=== PATIENT | male | born 1995 | race Caucasian/White ===

== ENCOUNTER 2020-11-11 10:04 | Emergency (ER) | payer SELFPAY ==
[2020-11-11 11:09] VITALS: BP 128/72; PULSE 72; RESP 14; TEMP 36.6; BMI 20.1
--- NOTE | 2020-11-11 11:35 | ED_ITS ---
HPI - Dental/Oral General Chief complaint: Dental/Oral Stated complaint: tooth pain Time Seen by Provider: 11/11/20 11:23 Source: patient Mode of arrival: ambulatory Limitations: no limitations History of Present Illness HPI Narrative: 25-year-old male who presents emergency department for evaluation of right lower jaw dental pain. The patient states that he has had a broken tooth in his right lower jaw for some time. States the past 3 days he has been getting pain in this tooth. He states that the pain is constant, 10/10 and not relieved with Tylenol, ibuprofen or warm compresses. Patient has not noticed any swelling of his face. He denied headache, nausea or vomiting. He denied fever, chills, weakness, nausea or vomiting. Patient does not have a dentist. Related Data Previous Rx's Medication Instructions Recorded morphine 15 mg immediate release 15 mg PO Q4-6H PRN #10 tab 11/11/20 tablet prednisone 20 mg tablet 60 mg PO DAILY 5 Days #15 tab 11/11/20 Allergies Allergy/AdvReac Type Severity Reaction Status Date / Time No Known Allergies Allergy Unverified 12/22/19 16:18 [No Known Allergies*] Review of Systems Review of Systems: Yes all other systems are reviewed and are negative [facility] Past Medical History [facility] Narrative: Past medical history: None. Social history: The patient is employed. 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 He smokes half pack of cigarettes per day for 6 years. He occasionally drinks alcohol. He denies drug use. Social History Social History Advance Directives: No Advance Directives Information Provided: No Physical Exam Vital Signs: Vital Signs: Last Vital Signs Temp 97.8 F 11/11/20 11:09 Pulse 72 11/11/20 11:09 Resp 14 11/11/20 11:09 BP 128/72 11/11/20 11:09 Body Mass Index 20.1 Const: General: cooperative and healthy appearing Orientation/consciousness: oriented to person and oriented to place Limitations: no limitations HENMT: Head: Yes normal to inspection Ears: external ears normal General nose exam: Normal external nose present Face and sinus: Yes normal facial exam Mouth: Normal oral and palatal mucosa present Teeth image: 1. Fractured tooth, tooth below the gumline, no gingival swelling, no abscess, no discharge Throat: Yes posterior oropharynx normal Eyes: General: appearance normal, both eyes and all related structures Eyelids: Yes eyelids normal Conjunctivae: conjunctivae normal Sclerae: sclerae normal Pupils: Equal, round and reactive pupils present Neck: Neck: Yes normal visual inspection, Yes full ROM, Yes no lymphadenopathy, Yes trachea midline and Yes supple Resp: Effort & Inspection: normal respiratory effort Neuro: General: oriented to person and oriented to place Cranial nerves: Yes Equal, round and reactive pupils present Psych: Appearance: grossly normal Mental Status: mental status grossly normal Speech and movement: Normal speech and movement present Course Course Course Narrative: 25-year-old man who presents emergency department for evaluation of dental pain. Physical examination does reveal a fractured tooth in position 32 which is tender to palpation. Patient's presentation is consistent with a dental infection. Patient was started on penicillin 500 mg pills, 1 pill 4 times a day for 10 days. He is advised to take Tylenol and ibuprofen for pain. For pain not relieved by these medications he was pr escribed morphine 15 mg pills, 1 pill every 4-6 hours as needed. The patient was given the dental clinic referral list. The patient was given verbal and printed instructions prior to discharge. The patient was advised to follow-up with his PCP in 2 days and to return to the emergency department if his symptoms get worse or if he develops any new symptoms that are concerning to him. Discharge Plan Discharge Clinical Impression: Dental infection Patient Disposition: Home, Self-Care Instructions: Toothache (ED) Additional Instructions: Your presentation is consistent with a dental infection. Take ibuprofen 200 mg pills, 3 pills every 6 hours as needed for pain. Take extra-strength Tylenol (acetaminophen) 500 mg pills, 2 pills every 6 hours as needed for pain. For pain not relieved by ibuprofen or Tylenol take morphine 15 mg pills, 1 pill every 4 hours as needed for pain. This medication will make you sleepy, do not drive or work while taking this medication. Morphine is a narcotic medication and can be addicting. If you are concerned about addiction you can ask the pharmacist for less pills or do not get this prescription filled. Follow-up with your doctor in 2 days. Please return to the emergency department if your symptoms get worse or if you develop any symptoms that are concerning to you. Prescriptions: New prednisone 20 mg tablet 60 mg PO DAILY 5 Days Qty: 15 RF: 0 morphine 15 mg tablet 15 mg PO Q4-6H PRN (Reason: pain) Qty: 10 RF: 0
== END 2020-11-11 12:53 | disposition home or self-care (01) ==
PROVIDERS: Emergency Provider Emergency Medicine Emergency Medical Services
DX: K04.7 Periapical abscess without sinus (principal); K08.89 Other specified disorders of teeth and supporting structures
CPT/HCPCS: 99283

== ENCOUNTER 2021-04-30 16:17 | Emergency (ER) | payer SELFPAY ==
[2021-04-30 16:56] VITALS: BP 118/79; PULSE 76; RESP 18; TEMP 36.5; O2SAT 99
--- NOTE | 2021-04-30 18:09 | ED_ITS ---
HPI - Dental/Oral General Chief complaint: Dental/Oral Stated complaint: right dental pain Source: patient Mode of arrival: ambulatory Limitations: no limitations History of Present Illness HPI Narrative: 26-year-old male presents with 9/10 dental pain for approximately 1 week. States that he has multiple broken teeth with caries, and has poor dental care. Any fevers or chills, and is able to open and close his mouth without difficulty. MD Complaint: tooth pain Teeth map: 1. Broken tooth with visible caries 2. Carries 3. Carries 4. Carry Onset (ago): week(s) (1) Duration: constant Severity: moderate Severity scale (1-10): 8 Relieving factors: nothing Exacerbating factors: chewing, cold and heat Context: history of dental caries and poor dental care Associated symptoms: gum swelling Treatment prior to arrival: oral analgesic Related Data Previous Rx's Medication Instructions Recorded morphine 15 mg immediate release 15 mg PO Q4-6H PRN #10 tab 11/11/20 tablet penicillin V potassium 500 mg 500 mg PO QID 10 Days #40 tab 11/11/20 tablet amoxicillin 875 mg-potassium 1 tab PO Q12H 10 Days #20 tab 04/30/21 clavulanate 125 mg tablet (Augmentin) ibuprofen 600 mg tablet 600 mg PO Q6H PRN #30 tab 04/30/21 Allergies Allergy/AdvReac Type Severity Reaction Status Date / Time No Known Allergies Allergy Verified 04/30/21 16:56 [No Known Allergies*] Review of Systems Verdana 4l Review of Systems: Verdana 4d Verdana 4d Constitutional: No Fever, No Chills ENT/Mouth: No swallowing difficulty, no change in voice, positive dental pain, positive jaw pain, no facial swelling Eyes: No Eye Pain, No Swelling Cardiovascular: No Chest Pain, No SOB Respiratory:: No Cough, No Sputum, No Wheezing, No Smoke Exposure, No Dyspnea Gastrointestinal: No Nausea, No Vomiting, No Diarrhea Genitourinary: No Dysuria Musculoskeletal: No Myalgias Skin: No rash Neuro: No Weakness, No Numbness, No Headache Yes all other systems are reviewed and are negative [facility] Past Medical History Attestation statement: The following information was validated with the patient. Source: old records reviewed Social History Social History Advance Directives: No Advance Directives Information Provided: No Physical Exam Verdana 4l Vital Signs: Verdana 4d Verdana 4d Vital Signs: Verdana 4d Verdana 4Bd Last Vital Signs Verdana 4d Technical Operations Specialist 4d Naila Brown 4d Temp 97.7 F 04/30/21 18:19 Technical Operations Specialist New 4d Pulse 66 04/30/21 18:19 Naila NewNew 4d Resp 16 04/30/21 18:19 BP 102/66 04/30/21 18:19 Pulse Ox 100 04/30/21 18:19 BMI result Body Mass Index 20.0 Appearance: Alert. Oriented X3. No acute distress. Eyes: Pupils equal, round and reactive to light. ENT: Pharynx normal. Multiple dental caries with broken teeth, gingivitis around tooth number 30 Neck: Normal inspection. Neck supple. No cervical lymphadenopathy. No nuchal rigidity. CVS: Normal heart rate and rhythm. Pulses normal. Respiratory: No respiratory distress. Breath sounds normal. Abdomen: Soft and nontender. Skin: Skin warm and dry. Normal skin color. Normal skin turgor. Extremities: No lower extremity edema. Gait well-balanced well coordinated. Neuro: No motor deficit. No sensory deficit. Cranial nerves 2-12 intact. Course Course Course Narrative: 26-year-old male presents with dental caries and dental pain. Does not have a dental provider. Patient is afebrile, appears nontoxic. Able to open and close mouth without difficulty. Will give, Toradol, prescription for ibuprofen and have patient follow-up with dentist I did provide dental phone numbers his discharge instructions and he does understand that he must call as well as waste picker his antibiotics. Patient verbalizes understanding of and agrees to plan of care to discharge home. MDM - Dental/Oral Differential Diagnosis Differential diagnosis: Likely dental caries and toothache Medical Records Attestation: I reviewed the patient's medical records. Discharge Plan Discharge Clinical Impression: Toothache Patient Disposition: Home, Self-Care Instructions: Toothache (ED) Additional Instructions: You were evaluated for dental pain. Please follow-up with a dentist. I prescribed Augmentin 875 mg twice a day for the next 10 days. Please take Motrin 600 mg every 6 hours as needed. You may also take Tylenol 650 mg every 6 hours as needed for pain management. Thank you for choosing this emergency department for evaluation. Please fo llow-up with primary care physician as needed. Return to the emergency department for any new, concerning, or worsening symptoms. Prescriptions: New amoxicillin-pot clavulanate [Augmentin] 875-125 mg tablet 1 tab PO Q12H 10 Days Qty: 20 RF: 0 ibuprofen 600 mg tablet 600 mg PO Q6H PRN (Reason: pain) Qty: 30 RF: 0 No Action morphine 15 mg tablet 15 mg PO Q4-6H PRN (Reason: pain) Qty: 10 RF: 0 penicillin V potassium 500 mg tablet 500 mg PO QID 10 Days Qty: 40 RF: 0 Stand Alone Forms: Dental Emergency Numbers, Work/School Release Interventions: ED Discharge Assessment Last Done: 04/30/21 18:51 Discharge Date/Time: 04/30/21 19:08
[2021-04-30 18:19] VITALS: BP 102/66; PULSE 66; RESP 16; TEMP 36.5; O2SAT 100
[2021-04-30] MEDS: Ketorolac Tromethamine 60 MG/2 ML VIAL IM (18:25)
[2021-04-30] MEDS: Amoxicillin/Potassium Clav 875 MG TABLET PO (18:25)
== END 2021-04-30 19:08 | disposition home or self-care (01) ==
PROVIDERS: Emergency Provider Emergency Medicine
DX: K02.9 Dental caries, unspecified (principal)
CPT/HCPCS: 96372; 99284; J1885

== ENCOUNTER 2022-01-21 19:12 | Emergency (ER) | payer OTHER, SELFPAY ==
--- NOTE | ~2022-01-21 | XR_ITS ---
EXAMINATION: XR lumbar spine 2-3V, XR shoulder RT min 2V CLINICAL INFORMATION: Reason for Exam pain, no injury COMPARISON: None. TECHNIQUE: 3 views lumbosacral spine; 4 views right shoulder FINDINGS: Lumbar spine: Normal alignment of the lumbar spine. No listhesis. Vertebral body heights and intervertebral disc space heights are maintained. No pars defects are identified. Moderate amount of formed stool seen in the visualized colon. Right shoulder: No fracture or dislocation. Glenohumeral joint space and acromiohumeral interval are maintained. No periarticular soft tissue calcification. AC joint is congruent and intact. Visualized right lung is grossly clear. XR/XR lumbar spine 2-3V IMPRESSION: 1. Normal alignment of the lumbar spine. No listhesis or fracture. 2. No acute osseous injury at the right shoulder.
--- NOTE | ~2022-01-21 | XR_ITS ---
EXAMINATION: XR lumbar spine 2-3V, XR shoulder RT min 2V CLINICAL INFORMATION: Reason for Exam pain, no injury COMPARISON: None. TECHNIQUE: 3 views lumbosacral spine; 4 views right shoulder FINDINGS: Lumbar spine: Normal alignment of the lumbar spine. No listhesis. Vertebral body heights and intervertebral disc space heights are maintained. No pars defects are identified. Moderate amount of formed stool seen in the visualized colon. Right shoulder: No fracture or dislocation. Glenohumeral joint space and acromiohumeral interval are maintained. No periarticular soft tissue calcification. AC joint is congruent and intact. Visualized right lung is grossly clear. XR/XR shoulder RT min 2V IMPRESSION: 1. Normal alignment of the lumbar spine. No listhesis or fracture. 2. No acute osseous injury at the right shoulder.
[2022-01-21 21:38] VITALS: BP 114/73; PULSE 70; RESP 16; TEMP 36.4; O2SAT 98
--- NOTE | 2022-01-22 00:05 | ED.BACK ---
HPI - Back Pain/Injury General Chief Complaint: Back Pain/Injury Stated Complaint: back/ shoulder pain Time Seen by Provider: 01/21/22 23:56 Source: patient Mode of arrival: ambulatory Limitations: no limitations History of Present Illness HPI Narrative: 26-year-old male who is healthy who presents with several weeks of lower back pain. No radiation of pain. No numbness or tingling in the lower extremities. No weakness lower extremities. No bowel or bladder cause. No fevers or chills. No numbness in the groin. Patient also reports right shoulder pain. This has been going on for several weeks as well. Patient is right-hand dominant. No weakness, numbness or tingling of the extremity. 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 Cannot recall specific injury Related Data Previous Rx's Medication Instructions Recorded morphine 15 mg immediate release 15 mg PO Q4-6H PRN pain #10 tabs 11/11/20 tablet penicillin V potassium 500 mg 500 mg PO QID 10 days #40 tabs 11/11/20 tablet amoxicillin 875 mg-potassium 1 tab PO Q12H 10 days #20 tabs 04/30/21 clavulanate 125 mg tablet (Augmentin) ibuprofen 600 mg tablet 600 mg PO Q6H PRN pain #30 tabs 04/30/21 cyclobenzaprine 10 mg tablet 10 mg PO TID PRN muscle spasm #15 01/22/22 tabs naproxen 500 mg tablet 500 mg PO BID PRN pain #30 tabs 01/22/22 Allergies Allergy/AdvReac Type Severity Reaction Status Date / Time No Known Allergies Allergy Verified 04/30/21 16:56 [No Known Allergies*] Review of Systems Review of Systems: Yes all other systems are reviewed and are negative Constitutional: Constitutional: Reports no additional constitutional complaints, Denies body ache(s), Denies chills, Denies fever(s), Denies headache(s) and Denies weakness Eyes: Eyes: Reports no additional eye complaints and Denies change in vision ENT: Reports system reviewed and no additional complaints, except as documented, Denies dizziness, Denies headache(s), Denies nasal congestion, Denies nasal discharge and Denies neck pain Cardiovascular: Cardiovascular: Reports no additional cardiovascular complaints, Denies chest pain, Denies leg edema and Denies dyspnea Respiratory: Respiratory: Reports no additional respiratory complaints, Denies cough and Denies dyspnea Gastrointestinal: Gastrointestinal: Reports no additional gastrointestinal complaints, Denies abdominal pain, Denies diarrhea, Denies nausea and Denies vomiting Genitourinary: Genitourinary: Denies urinary incontinence Musculoskeletal: Musculoskeletal: Reports no additional musculoskeletal complaints, Reports back pain, Reports arthralgias, Denies joint swelling, Denies neck pain, Denies numbness and Denies tingling Integumentary/Breasts: Skin/Breast: Reports system reviewed and no additional complaints, except as docu and Denies rash Neurologic: Reports system reviewed and no additional complaints, except as documented, Denies Abnormal speech present, Denies dizziness, Denies headache(s), Denies numbness, Denies tingling and Denies weakness PMFSH Past Medical History Attestation statement: The following information was validated with the patient. Source: old records reviewed and nursing notes reviewed Social History Social History Advance Directives: No Advance Directives Information Provided: Yes Physical Exam Vital Signs: Vital Signs: Last Vital Signs Temp 97.4 F 01/22/22 00:13 Pulse 65 01/22/22 00:13 Resp 16 01/22/22 00:13 BP 109/63 01/22/22 00:13 Pulse Ox 98 01/22/22 00:13 O2 Del Method 01/22/22 00:13 BMI result Body Mass Index 20.0 Const: General: cooperative, healthy appearing, comfortable and no acute distress Orientation/consciousness: patient oriented x3 Limitations: no limitations HEENT: Head: Yes normal to inspection Ears: hearing grossly normal bilaterally General nose exam: Normal external nose present Face and sinus: Yes normal facial exam Mouth: Normal oral and palatal mucosa present Throat: Yes posterior oropharynx normal Eyes: General: appearance normal, both eyes and all related structures Pupils: Equal, round and reactive pupils present Neck: Neck: Yes normal visual inspection Chest: Chest palpation & inspection: normal inspection of the chest Resp: Effort & Inspection: normal respiratory effort Auscultation: clear to auscultation bilaterally Cardio: Rate: regular rate Rhythm: regular rhythm Peripheral pulses: Peripheral pulses 2+ throughout GI: Inspection: Yes normal to inspection Palpation (GI): Soft to palpation and nontender Auscultation: normal bowel sounds Back/Spine/Pelvis: Other: Mid lumbar spine tenderness with no step-offs deformities. Pain is worsened with flexion extension of the spine. Thoracic/Lumbar Spine: thoracic and lumbar spine normal to inspection Skin: General skin exam: no rashes or lesions noted Neuro: General: patient oriented x3, no focal motor deficits and normal sensation to monofilament Cranial nerves: Yes Equal, round and reactive pupils present Cognition (Neuro): normal cognition Speech: No Abnormal speech present Gait exam (Neuro): Normal gait present Motor exam (neuro): 5/5 motor strength present throughout Sensory Exam: Normal double simultaneous stimulation for sensation Deep tendon reflexes (DTR's): Right patellar reflex intensity grade: 2+ and Left patellar reflex intensity grade: 2+ Extrem: Other: Tenderness to the anterior right shoulder with full range of motion. Neurovascular intact distally General: Yes normal to inspection Course Course Course Narrative: X-ray show show no bony abnormality. Likely strain. Patient will be discharged home with muscle relaxant and anti-inflammatory. Reviewed worrisome signs and symptoms of when to return to the emergency room. Comfortable plan for discharge home. MDM - Back Pain/Injury MDM Narrative Medical decision making narrative: 26-year-old male right-hand dominant to works a physically demanding job here with right shoulder pain and lower back pain for several weeks. No neurological deficits or red flag symptoms. Will check x-ray Medical Records Attestation: I reviewed the patient's medical records. Lab Data Attestation: I reviewed the patient's lab results. Imaging Data lumbar spine xray: Attestation: I personally reviewed and interpreted this imaging study as follows: Radiologist's impression: FINDINGS: Lumbar spine: Normal alignment of the lumbar spine. No listhesis. Vertebral body heights and intervertebral disc space heights are maintained. No pars defects are identified. Moderate amount of formed stool seen in the visualized colon. right shoulder x-ray: Attestation: I personally reviewed and interpreted this imaging study as follows: Radiologist's impression: Right shoulder: No fracture or dislocation. Glenohumeral joint space and acromiohumeral interval are maintained. No periarticular soft tissue calcification. AC joint is congruent and intact. Visualized right lung is grossly clear. Discharge Plan Discharge Clinical Impression: Strain of lumbar region, Right shoulder strain Patient Disposition: Home, Self-Care Instructions: Muscle Strain (ED), Low Back Strain (ED) Additional Instructions: No heavy lifting or bending Gentle stretching Prescriptions: New cyclobenzaprine 10 mg tablet 10 mg PO TID PRN (Reason: muscle spasm) Qty: 15 0RF naproxen 500 mg tablet 500 mg PO BID PRN (Reason: pain) Qty: 30 0RF No Action morphine 15 mg tablet 15 mg PO Q4-6H PRN (Reason: pain) Qty: 10 0RF Rx Instructions: The patient may ask for partial fill penicillin V potassium 500 mg tablet 500 mg PO QID 10 Days Qty: 40 0RF amoxicillin-pot clavulanate [Augmentin] 875-125 mg tablet 1 tab PO Q12H 10 Days Qty: 20 0RF ibuprofen 600 mg tablet 600 mg PO Q6H PRN (Reason: pain) Qty: 30 0RF Referrals: Physician,Unknown J [Primary Care Provider] - Stand Alone Forms: Work/School Release
[2022-01-22 00:13] VITALS: BP 109/63; PULSE 65; RESP 16; TEMP 36.3; O2SAT 98
== END 2022-01-22 01:31 | disposition home or self-care (01) ==
PROVIDERS: Emergency Provider Internal Medicine
DX: M54.50 Low back pain, unspecified (principal); M25.511 Pain in right shoulder; Z79.899 Other long term (current) drug therapy
CPT/HCPCS: 72100; 73030; 99283

== ENCOUNTER 2022-02-16 18:49 | Emergency (ER) | payer OTHER, SELFPAY ==
[2022-02-16 19:00] VITALS: BP 119/64; PULSE 81; RESP 15; TEMP 36.8; O2SAT 98
[2022-02-16 22:59] VITALS: BP 132/78; PULSE 70; RESP 16; TEMP 36.6; O2SAT 98
== END 2022-02-17 00:58 | disposition left against medical advice (07) ==
PROVIDERS: Emergency Provider Emergency Medicine
DX: K08.89 Other specified disorders of teeth and supporting structures (principal)
CPT/HCPCS: 99281

== ENCOUNTER 2024-10-12 11:00 | Emergency (ER) | payer SELFPAY ==
--- NOTE | ~2024-10-12 | CT_ITS ---
EXAMINATION: CT ABDOMEN AND PELVIS WITH CONTRAST CLINICAL INFORMATION: Epigastric Abdominal pain. COMPARISON: None available. TECHNIQUE: Multidetector volumetric images were obtained from the superior aspect of the liver through the pubic symphysis following administration 85 mL of Omnipaque 350 intravenous contrast. Sagittal and coronal reformatted images were obtained on the technologist's workstation. Oral contrast: No This CT examination was performed using dose optimization techniques as appropriate, variously including the following: *Automated exposure control *Adjustment of mA and/or kV according to patient size (this includes techniques or standardized protocols for targeted exams where dose is matched to indication/reason for exam; i.e. extremities or head) *Use of iterative reconstruction technique FINDINGS: LUNG BASES: The visualized lung bases are unremarkable. LIVER, GALLBLADDER, AND BILIARY TREE: The liver is normal in size, shape, and attenuation. There is periportal edema present. No focal hepatic lesion or biliary ductal dilatation is present. The gallbladder is unremarkable with no evidence of radiopaque gallstones, gallbladder wall thickening, or obvious pericholecystic inflammatory changes. PANCREAS: Unremarkable. SPLEEN: Unremarkable. ADRENAL GLANDS: Unremarkable. KIDNEYS AND URETERS: The kidneys are normal in size, shape, and attenuation. No hydronephrosis or hydroureter. There are approximately three 3 mm nonobstructing calculi in each kidney. BLADDER: Unremarkable. GASTROINTESTINAL TRACT: The appendix is not definitively seen although there are no CT features of appendicitis or inflammation abutting the cecum. The small bowel, large bowel, and rectum are normal in appearance without inflammation or wall thickening. There is no abnormally dilated loop of bowel. There is no abnormal mucosal thickening or enhancement. ABDOMINAL WALL: No significant hernia is appreciated. LYMPH NODES: No abnormal lymphadenopathy is present. VASCULAR: Unremarkable. PELVIC VISCERA: The prostate and seminal vesicles are unremarkable. OSSEOUS STRUCTURES: Unremarkable. CT/CT abdomen pelvis w IV con IMPRESSION: 1. No acute finding in the abdomen or pelvis. 2. Periportal edema, nonspecific and likely secondary to IV hydration. 3. Nonobstructing nephrolithiasis bilaterally. Electronically signed by: Marvin Zuniga MD 10/12/2024 02:18 PM EDT
--- NOTE | ~2024-10-12 | XR_ITS ---
EXAMINATION: XR CHEST 2 VIEWS HISTORY: CP COMPARISON: There are no prior studies available for comparison. FINDINGS: PA and lateral views of the chest are submitted. The lungs are expanded and clear. There is no pleural effusion, pneumothorax, or pulmonary vascular congestion. The heart is normal in size. The bones are intact. XR/XR chest 2V IMPRESSION: Normal examination of the chest. Electronically signed by: Yehuda Felton MD 10/12/2024 12:20 PM EDT
--- NOTE | 2024-10-12 11:06 | ECG_ITS ---
Test Reason : chest pain Blood Pressure : */* mmHG Vent. Rate : 71 BPM Atrial Rate : 71 BPM P-R Int : 144 ms QRS Dur : 88 ms QT Int : 362 ms P-R-T Axes : 83 76 66 degrees QTcB Int : 393 ms Normal sinus rhythm Normal ECG No previous ECGs available Referred By: Generic ED Physician Electronically Signed By: Nadeem Kendrick
[2024-10-12 11:36] VITALS: BP 119/81; PULSE 66; RESP 16; TEMP 36.8; O2SAT 99; BMI 20.1
--- NOTE | 2024-10-12 11:36 | ED_ITS ---
HPI - Chest Pain General Chief Complaint: Abdominal Pain Stated Complaint: Chest pain, abd pain Time Seen by Provider: 10/12/24 13:06 Source: patient Mode of arrival: ambulatory Limitations: no limitations History of Present Illness ED Provider: Jessica Brooks PA-C HPI narrative: Patient is a 29 year old male with past medical history of right shoulder injury presenting to ER with chief complaint of epigastric and mid-chest pain for the past 3 days. The pain was preceded by 1 day of right shoulder blade pain that has since resolved. He denies shortness of breath, nausea, vomiting, diarrhea, melena, hematochezia, constipation, or any other complaints. He denies previous abdominal surgeries. He denies history of previously diagnosed ulcers. He denies previous cardiac history. He takes ibuprofen for tooth pain. Today he felt his pain was alleviated after he ate a few pretzels, but cannot recall if his pain was alleviated by eating in previous days. He states the pain is intermittent in nature and is also unsure if it is worse with eating. He reports decreased PO food intake but feels fluid intake has been adequate. Per triage he drinks 2-3 shots daily and denies recreational drug use. Related Data Previous Rx's ?Medication ?Instructions ?Recorded morphine 15 mg immediate release 15 mg PO Q4-6H PRN pa in #10 tabs 11/11/20 tablet penicillin V potassium 500 mg 500 mg PO QID 10 days #4 0 tabs 11/11/20 tablet amoxicillin 875 mg-potassium 1 tab PO Q12H 10 days #20 tabs 04/30/21 clavulanate 125 mg tablet (Augmentin) ibuprofen 600 mg tablet 600 mg PO Q6H PRN pain #30 t abs 04/30/21 cyclobenzaprine 10 mg tablet 10 mg PO TID PRN muscle s pasm #15 01/22/22 tabs naproxen 500 mg tablet 500 mg PO BID PRN pain #30 t abs 01/22/22 Allergies Allergy/AdvReac Type Severity Reaction Status Date / Time No Known Allergies (No Known Allergy Verified 10/12/24 11:39 Allergies*) Review of Systems 2 Constitutional: Constitutional: Reports no additional constitutional complaints, Denies chills, Denies fever(s) and Denies night sweats Eyes: Eyes: Reports no additional eye complaints, Denies blurry vision, Denies change in vision, Denies diplopia, Denies eye discharge, Denies loss of vision and Denies eye pain ENT: Denies dizziness Cardiovascular: Cardiovascular: Reports no additional cardiovascular complaints, Reports chest pain, Reports Epigastric Pain, Denies lightheadedness, Denies Loss of Consciousness and Denies dyspnea Respiratory: Respiratory: Reports no additional respiratory complaints and Denies dyspnea Gastrointestinal: Gastrointestinal: Reports no additional gastrointestinal complaints, Denies melena, Denies hematochezia, Denies change in bowel habits and Denies change in stool character Genitourinary: Genitourinary: Reports no additional male genitourinary complaints, Denies hematuria, Denies oliguria, Denies difficulty urinating, Denies dysuria, Denies urinary frequency, Denies urinary hesitancy, Denies urinary incontinence and Denies urinary urgency Musculoskeletal: Musculoskeletal: Reports no additional musculoskeletal complaints, Denies numbness and Denies tingling Neurologic: Denies dizziness, Denies loss of vision, Denies numbness and Denies tingling Psychiatric: Psychiatric: Reports no additional psychiatric complaints Endocrine: Endocrine: Reports no additional endocrine complaints Hematologic/Lymphatic: Hematologic/Lymphatic: Reports no additional hematologic/lymphatic complaints Allergic/Immunologic: Allergic/Immunologic: Reports no additional allergic/immunologic complaints PMFSH Past Medical History Attestation statement: The following information was validated with the patient. Source: old records reviewed and nursing notes reviewed Social History Social History Alcohol intake: current Smoked in Last 30 Days: Yes Use of substances other than those prescribed or required for medical reasons: Yes Substance Use Type: Marijuana Substance Use Frequency: Occasionally Advance Directives: No Advance Directives Information Provided: Yes Physical Exam 2 Vital Signs: Vital Signs: Last Vital Signs Temp 97.7 F 10/12/24 14:00 Pulse 71 10/12/24 14:00 Resp 16 10/12/24 14:00 BP 125/78 10/12/24 14:00 Pulse Ox 100 10/12/24 14:00 O2 Del Method Room Air 10/12/24 14:00 BMI result Body Mass Index 20.1 Const: General: cooperative, no acute distress, alert and awake Nutritional Appearance: well nourished Orientation/consciousness: patient oriented x3 HEENT: Head: Yes normal to inspection and Yes atraumatic Ears: hearing grossly normal bilaterally and external ears normal General nose exam: Normal external nose present, no nasal discharge noted and no epistaxis Face and sinus: Yes normal facial exam, No abrasion and No laceration Mouth: Normal oral and palatal mucosa present, no drooling and no muffled voice Eyes: General: appearance normal, both eyes and all related structures P eriorbital: periorbital findings normal Eyelids: Yes eyelids normal C onjunctivae: conjunctivae normal Pupils: Equal, round and reactive pupils present EOM: EOMs intact bilaterally Neck: Neck: Yes normal visual inspection, Yes full ROM and Yes no lymphadenopathy Resp: Effort & Inspection: normal respiratory effort and able to speak in complete sentences Cardio: Rate: regular rate Rhythm: regular rhythm Heart sounds: S1 normal heart sound present and S2 normal heart sound present GI: Palpation (GI): Soft to palpation, nontender, no guarding and not rigid Neuro: General: patient oriented x3, moves all extremities and CN's II-XI intact bilaterally Cranial nerves: Yes Equal, round and reactive pupils present Cognition (Neuro): normal cognition Extrem: General: Yes normal to inspection, Yes full ROM and Yes capillary refill normal Psych: Appearance: grossly normal Mental Status: mental status grossly normal Affect: normal affect Attitude: cooperative Thought process: N ormal thought process present Thought content: Normal thought content present Insight: Good insight present (Psych) Course Course Course Narrative: This is an RME: Additional HPI, ROS, PE not included below will be deferred to primary provider. RME assessment and note performed by: Kaleigh Vazquez PA-C This is a 11-eiqv-toi-male, with no known medical problems, who presents to the ER with a complaint of abdominal pain and chest pain x 2-3 days. Reports that every time he gets pain in his stomach he feels pain in his chest. No nausea, vomiting. No constipation or diarrhea. Pain improved after eating. Reports that he had a tooth ache several weeks ago and was taking alot of tylenol and motrin. Drinks etoh daily - 2-3 shots per day. Abd soft, mild TTP in the epigastrium. Plan: Labs, EKG, CXR, further Er eval needed Medications Administered Discontinued Medications Generic Name Dose Route Start Last Admin Trade Name Freq PRN Reason Stop Dose Admin Sodium Chloride 1,000 mls @ 999 mls/hr 10/12/24 13:30 10/12/24 14:27 Ns IV 10/12/24 14:30 Infused .Q1H1M FAISAL Infusion Iohexol 100 ml 10/12/24 13:49 10/12/24 13:50 Iohexol 350 Mg/Ml 100 Ml Infus..Btl IV 10/12/24 13:50 85 ml ONCE ONE Administration Morphine Sulfate 4 mg 10/12/24 13:16 10/12/24 13:40 Morphine Sulfate 4 Mg/Ml Cartridge IVPUSH 10/12/24 13:17 4 mg ONCE ONE Administration Protocol Ondansetron HCl 4 mg 10/12/24 13:16 10/12/24 13:35 Ondansetron Hcl 4 Mg/2 Ml Vial IVPUSH 10/12/24 13:17 4 mg ONCE ONE Administration Medical Decision Making Medical Decision Making [facility] Narrative: Patient is a 29 year old assigned male at with a history of a previous right shoulder injury presenting to the emergency department today with epigastric pain. Patient's physical exam was unremarkable. Patient's blood work was unremarkable. Patient's urine showed no acute process. Patient's EKG was unremarkable. Patient's CT abd/pelvis showed no acute process. Patient's chest x-ray showed no acute process. I explained my physical exam findings as well as all test results to the patient. I answered all questions asked by the patient. Patient received IV fluids, morphine, and zofran which, upon re-evaluation, he stated it helped his symptoms significantly. I stressed the importance of the patient avoiding NSAID use. I stressed the importance of the patient taking his medication as directed (either prescribed or as the over the counter packaging recommends). I stressed the importance of the patient following up with his primary care provider. I stressed the importance of the patient returning to the emergency department immediately if his symptoms were to worsen or if he were to develop any dizziness, shortness of breath, difficulty breathing, chest pain, blurry vision, loss of vision, nausea, vomiting, abdominal pain, fever, chills, back pain, or any other complaints. Patient verbalized agreement and understanding with this treatment plan and discharge. Differential Diagnosis Differential Diagnoses: The differential diagnosis associated with the presentation includes Gastric ulcer Duodenal ulcer Abdominal pain GERD Admission/Observation Consideration of admission/observation: Escalation of care including admission/observation considered Patient would have been admitted to the hospital had his work up had any findings where hospital admission was appropriate and his clinical presentation warranted hospital admission. Lab Data [facility] Lab Attestation statement: I reviewed the patient's lab results. My interpretation of these results are in the MDM Rationale portion of this note. 10/12/24 11:56 10/12/24 11:56 Labs: Lab Results 10/12/24 10/12/24 Range/Units 11:56 12:00 WBC 5.0 (4.8-10.8) X10*3/uL RBC 4.15 L (4.60-5.80) X10*6/uL Hgb 13.1 L (14.0-18.0) g/dl Hct 37.6 L (42.0-52.0) % MCV 90.6 (80.0-98.0) fL MCH 31.6 (27.0-33.0) pg MCHC 34.8 (31.0-36.0) g/dl RDW 11.9 (11.0-16.0) % Plt Count 219 (160-400) X10*3/uL MPV 9.2 L (9.4-12.4) fL Immature Gran % (Auto) 0.2 (0.0-0.4) % Neut % (Auto) 67.2 (45-73) % Lymph % (Auto) 21.4 (20-40) % [place] % (Auto) 9.4 (2-11) % Eos % (Auto) 1.2 (0-4) % Baso % (Auto) 0.6 (0-2) % Lymph # (Auto) 1.1 L (1.2-4.9) X10*3/uL [place] # (Auto) 0.5 (0.1-1.2) X10*3/uL Eos # (Auto) 0.1 (0.0-0.4) X10*3/uL Baso # (Auto) 0.0 (0.0-0.2) X10*3/uL Abs Immat Gran (auto) 0.01 (0.00-0.03) X10*3/uL Absolute Neuts (auto) 3.4 (2.0-8.3) x10*3/uL Absolute Nucleated RBC 0.000 (0.0-0.012) X10*3/uL Nucleated RBC % (auto) 0.0 (0.0-0.2) /100WBC Sodium 137 (135-145) mmol/L Potassium 4.1 (3.3-5.1) mmol/L Chloride 104 (96-108) mmol/L Carbon Dioxide 27 (22-29) mmol/L Anion Gap 10 L (12-20) BUN 12 (9-16) mg/dL Creatinine 0.70 (0.5-1.4) mg/dL Estim Creat Clear Calc 119.8 Estimated GFR > 60 Random Glucose 110 (60-115) mg/dL Calcium 9.2 (8.4-10.2) mg/dL Magnesium 1.8 (1.6-2.6) mg/dL Total Bilirubin 0.4 (0.0-1.0) mg/dL Direct Bilirubin 0.2 (0.0-0.5) mg/dL AST 32 (5-37) U/L ALT 28 (0-40) U/L Alkaline Phosphatase 84 (39-117) U/L Troponin I High Sens < 2.7 (<3.5-35.0) ng/L Total Protein 7.3 (6.5-8.0) g/dL Albumin 4.4 (3.5-5.0) g/dL Lipase 17 (8-78) U/L Urine Color Yellow Urine Appearance Turbid Urine pH 8.0 (5.0-9.0) Ur Specific [place] 1.010 (1.005-1.025) Urine Protein Negative (Neg-Trace) mg/dL Urine Glucose (UA) Negative (Negative) mg/dL Urine Ketones Negative (Negative) mg/dL Urine Blood Negative (Negative) Urine Nitrite Negative (Negative) Ur Leukocyte Esterase Negative (Negative) Independent Interpretation I performed an independent interpretation of an: EKG, Plain X-Ray and CT Scan Interpretation: My interpretation is in agreement with the radiologist's impression of these imaging studies. L Report Number: [id number]: Total DLP = 372.00 mGy-cm EXAMINATION: CT ABDOMEN AND PELVIS WITH CONTRAST CLINICAL INFORMATION: Epigastric Abdominal pain. COMPARISON: None available. TECHNIQUE: Multidetector volumetric images were obtained from the superior aspect of the liver through the pubic symphysis following administration 85 mL of Omnipaque 350 intravenous contrast. Sagittal and coronal reformatted images were obtained on the technologist's workstation. Oral contrast: No This CT examination was performed using dose optimization techniques as appropriate, variously including the following: *Automated exposure control *Adjustment of mA and/or kV according to patient size (this includes techniques or standardized protocols for targeted exams where dose is matched to indication/reason for exam; i.e. extremities or head) *Use of iterative reconstruction technique FINDINGS: LUNG BASES: The visualized lung bases are unremarkable. LIVER, GALLBLADDER, AND BILIARY TREE: The liver is normal in size, shape, and attenuation. There is periportal edema present. No focal hepatic lesion or biliary ductal dilatation is present. The gallbladder is unremarkable with no evidence of radiopaque gallstones, gallbladder wall thickening, or obvious pericholecystic inflammatory changes. PANCREAS: Unremarkable. SPLEEN: Unremarkable. ADRENAL GLANDS: Unremarkable. KIDNEYS AND URETERS: The kidneys are normal in size, shape, and attenuation. No hydronephrosis or hydroureter. There are approximately three 3 mm nonobstructing calculi in each kidney. BLADDER: Unremarkable. GASTROINTESTINAL TRACT: The appendix is not definitively seen although there are no CT features of appendicitis or inflammation abutting the cecum. The small bowel, large bowel, and rectum are normal in appearance without inflammation or wall thickening. There is no abnormally dilated loop of bowel. There is no abnormal mucosal thickening or enhancement. ABDOMINAL WALL: No significant hernia is appreciated. LYMPH NODES: No abnormal lymphadenopathy is present. VASCULAR: Unremarkable. PELVIC VISCERA: The prostate and seminal vesicles are unremarkable. OSSEOUS STRUCTURES: Unremarkable. CT/CT abdomen pelvis w IV con IMPRESSION: 1. No acute finding in the abdomen or pelvis. 2. Periportal edema, nonspecific and likely secondary to IV hydration. 3. Nonobstructing nephrolithiasis bilaterally. Electronically signed by: Marvin Zuniga MD 10/12/2024 02:18 PM EDT Dictated By: Marvin Zuniga MD Signed By: Electronically signed by Marvin Zuniga MD 10/12/24 1418 EXAMINATION: XR CHEST 2 VIEWS HISTORY: CP COMPARISON: There are no prior studies available for comparison. FINDINGS: PA and lateral views of the chest are submitted. The lungs are expanded and clear. There is no pleural effusion, pneumothorax, or pulmonary vascular congestion. The heart is normal in size. The bones are intact. XR/XR chest 2V IMPRESSION: Normal examination of the chest. Electronically signed by: Yehuda Felton MD 10/12/2024 12:20 PM EDT RP Dictated By: Yehuda Felton MD Signed By: Electronically signed by Yehuda Felton MD 10/12/24 1220 I independently interpreted this EKG and am in agreement with the below findings: Vent. Rate: 71 BPM Atrial Rate: 71 BPM P-R Int: 144 ms QRS Dur: 88 ms QT Int: 362 ms P-R-T Axes: 83 76 66 degrees QTcB Int: 393 ms Normal sinus rhythm Normal ECG No previous ECGs available DD/ 1106 Radiology Impression Discussion of test interpretation with radiology: I have reviewed the radiologist's reading. Discharge Plan Discharge Clinical Impression: Acute epigastric pain Patient Disposition: Home, Self-Care Instructions: Abdominal Pain (ED) Additional Instructions: Follow up with a primary care provider. Return to the emergency department immediately if your symptoms worsen or if you develop any numbness, tingling, dizziness, shortness of breath, difficulty breathing, chest pain, blurry vision, loss of vision, nausea, vomiting, abdominal pain, fever, chills, back pain, or any other complaints. L If you do not have a primary care provider - call any of the below numbers to establish and follow up with a primary care provider. [facility] Primary Care ([place]) [phone] [place] [address], [address] [facility] Primary Care ([address]) [phone] [facility], [address] [facility], [address] [facility] Primary Care ([address]) [phone] [place] [address], [address] [facility], [address] [facility] Primary Care ([place]) [phone] [place] [address], [address] [facility], [address] [facility] Family Medicine [phone] [place] [address], [id number] Please see the information below about our Patient Portal. If you are not yet enrolled in the [facility] Patient Portal, you will receive an enrollment email invitation following your visit to any [facility] setting. You may also self-enroll in the Patient Portal by visiting our website: [email or web address] The following information is required to access the Patient Portal: - Your [facility] Medical Record Number - Your personal home email address (must match what is in your electronic medical record, Registration staff can assist with this) - Name - Date of Capabilities of the Patient Portal: - Message some providers - View upcoming appointments - Access your health summary, medical history, and visit history - View current conditions and allergies - View procedure and lab results - View your medications, including guidelines, side effects, and precautions - Complete pre-appointment questionnaires requested by your provider - Ready summary reports of your office visits and procedures To access the Patient Portal Mobile [employer], follow these directions: - Search [employer] in the [employer] Store or [employer] Store - Download the [employer] - Search for [facility] - Enter your login/password Prescriptions: No Action morphine 15 mg tablet 15 mg PO Q4-6H PRN (Reason: pain) Qty: 10 0RF Rx Instructions: The patient may ask for partial fill penicillin V potassium 500 mg tablet 500 mg PO QID 10 Days Qty: 40 0RF amoxicillin-pot clavulanate [Augmentin] 875-125 mg tablet 1 tab PO Q12H 10 Days Qty: 20 0RF ibuprofen 600 mg tablet 600 mg PO Q6H PRN (Reason: pain) Qty: 30 0RF cyclobenzaprine 10 mg tablet 10 mg PO TID PRN (Reason: muscle spasm) Qty: 15 0RF naproxen 500 mg tablet 500 mg PO BID PRN (Reason: pain) Qty: 30 0RF Stand Alone Forms: Work/School Release Print Language: Occitan
[2024-10-12 12:01] LABS: MANUAL DIFF FLAG NO
[2024-10-12 12:03] LABS: Hematocrit 37.6 % (42.0-52.0); Hemoglobin 13.1 g/dl (14.0-18.0); Imm Gran Abs Auto 0.01 X10*3/uL (0.00-0.03); Imm Gran Pct Auto 0.2 % (0.0-0.4); Lymphocytes Absolute Auto 1.1 X10*3/uL (1.2-4.9); Mean Corpuscular HGB Conc 34.8 g/dl (31.0-36.0); Mean Corpuscular Hemoglobin 31.6 pg (27.0-33.0); Mean Corpuscular Volume 90.6 fL (80.0-98.0); NRBC Abs Auto 0.000 X10*3/uL (0.0-0.012); NRBC Pct Auto 0.0 /100WBC (0.0-0.2); Platelet Count 219 X10*3/uL (160-400); Red Blood Count 4.15 X10*6/uL (4.60-5.80); White Blood Count 5.0 X10*3/uL (4.8-10.8)
[2024-10-12 12:09] LABS: Appearance Urine Turbid; Glucose Urine UA Negative (Negative); PH 8.0 (5.0-9.0); Specific Gravity - Urine 1.010 (1.005-1.025)
[2024-10-12 12:16] LABS: Alanine Aminotransferase 28 U/L (0-40); Albumin Level 4.4 g/dL (3.5-5.0); Alkaline Phosphatase 84 U/L (39-117); Anion Gap 10 (12-20); Aspartate Amino Transferase 32 U/L (5-37); Blood Urea Nitrogen 12 mg/dL (9-16); Calcium 9.2 mg/dL (8.4-10.2); Carbon Dioxide 27 mmol/L (22-29); Chloride 104 mmol/L (96-108); Creatinine Clr Calc Pharmacy 119.8; Estimated Glomerular Filt Rate > 60; Lipase 17 U/L (8-78); Magnesium 1.8 mg/dL (1.6-2.6); Potassium 4.1 mmol/L (3.3-5.1); Sodium 137 mmol/L (135-145); Total Protein 7.3 g/dL (6.5-8.0)
[2024-10-12 12:24] LABS: Troponin-I High Sensitivity < 2.7 ng/L (<3.5-35.0)
[2024-10-12 13:39] VITALS: BP 120/78; PULSE 64; RESP 18; O2SAT 100
--- NOTE | 2024-10-12 13:40 | PC.NURSE ---
This Nurse obtained 20G iv access in left AC, PT medicated per jun. VS updated. Plan of care ongoing.
[2024-10-12] MEDS: iohexoL 350 MG/ML 100 ML INFUS..BTL IV (13:50)
[2024-10-12 14:00] VITALS: BP 125/78; PULSE 71; RESP 16; TEMP 36.5; O2SAT 100
[2024-10-12 14:55] VITALS: BP 122/86; PULSE 62; RESP 14; TEMP 37.1; O2SAT 100
[2024-10-12 14:57] VITALS: BP 122/86; PULSE 62; RESP 14; TEMP 37.1; O2SAT 100
== END 2024-10-12 14:58 | disposition home or self-care (01) ==
PROVIDERS: Physician Assistant Medical; Emergency Provider Emergency Medicine
DX: R10.13 Epigastric pain (principal); R07.89 Other chest pain; R10.2 Pelvic and perineal pain; M25.511 Pain in right shoulder; Z79.899 Other long term (current) drug therapy
CPT/HCPCS: 36415; 71046; 74177; 80048; 80076; 81003; 83690; 83735; 84484; 85025; 93005; 96361; 96374; 96375; 99285; J2270; J2405; Q9967

== ENCOUNTER → 2024-10-12 11:06 | Outpatient (BNV) | payer SELFPAY | PROVIDERS: Emergency Provider Emergency Medicine; Visit Provider Internal Medicine Cardiovascular Disease | DX: R07.89 Other chest pain (principal) | CPT/HCPCS: 93010 ==

== ENCOUNTER → 2024-10-12 11:40 | Outpatient (BNV) | payer SELFPAY | PROVIDERS: Emergency Provider Emergency Medicine; Visit Provider Radiology Diagnostic Radiology | DX: K76.89 Other specified diseases of liver (principal); N20.0 Calculus of kidney; R07.9 Chest pain, unspecified | CPT/HCPCS: 71046; 74177 ==